=== PATIENT | female | born 1940 | race Caucasian/White ===

== ENCOUNTER 2021-10-24 19:07 | Observation (INO) ==
[2021-10-24] MEDS ORDERED: Morphine 2 MG/ML SYRINGE IV ONE (23:03)
[2021-10-24] MEDS ORDERED: oxyCODONE/Acetamin 5/325 mg TAB PO PRN (23:46)
[2021-10-25 00:28] LABS: ABS Lymphocytes 1.1 10^3/ul (1.0-4.8); ABS Monocytes 0.7 10^3/ul (0-0.8); ABS Neutrophils 8.7 10^3/ul (1.5-7.7); Eosinophil % 0.1 %; Hematocrit 40 % (35-47); Hemoglobin 13.8 g/dL (12.0-16.0); Lymphocyte % 10.2 %; Mean Corpuscular HGB Conc 35 g/dL (31-36); Mean Corpuscular Hemoglobin 31 pg (27-31); Mean Corpuscular Volume 90 fL (80-97); Mean Platelet Volume 8.5 fL (7.4-10.4); Platelet Count 153 10^3/uL (150-450); Red Blood Count 4.46 10^6 /uL (3.70-4.87); Red Cell Distribution Width 12 % (10-15); White Blood Count 10.5 10^3/uL (3.5-10.8)
[2021-10-25 00:34] LABS: INR 1.16 (0.86-1.15)
[2021-10-25] MEDS ORDERED: Ondansetron 4 mg VIAL 2 MG/ML 2 ml VIAL IV PRN (00:39)
[2021-10-25 00:45] LABS: Albumin 4.4 g/dL (3.2-5.2); Albumin/Globulin Ratio 2.1 (1-3); Calcium 9.6 mg/dL (8.6-10.3); Globulin 2.1 g/dL (2-4); Potassium 3.7 mmol/L (3.5-5.0); Total Bilirubin 0.8 mg/dL (0.2-1.0); Total Protein 6.5 g/dL (6.4-8.9); eGFR CKD-EPI 87.4 (>60)
[2021-10-25] MEDS ORDERED: diPHENhydraMINE 25 mg TAB PO PRN (00:52)
[2021-10-25] MEDS ORDERED: Calcium/Vitamin D TAB 250/125 TAB PO SCH (09:00)
[2021-10-25] MEDS ORDERED: Enoxaparin 40 MG/0.4 ML SYR SUBCUT SCH (09:00)
[2021-10-25] MEDS: PTO: Multivitamins/Mins AREDS2 (NF) CAP PO SCH ×2 (09:20→15:04)
[2021-10-25 11:47] VITALS: BP 95/61
[2021-10-25] MEDS ORDERED: Cholecalciferol (VIT D3) 400 units TAB PO SCH (21:00)
== END 2021-10-25 16:40 | disposition home or self-care (01) ==
LOC: ED 19:07 → EDHOLD 19:07 → SSU 10-25 03:00
PROVIDERS: ADMIT Nurse Practitioner Family; ATTEND Internal Medicine

== ENCOUNTER 2023-03-19 23:37 | Inpatient (IN) ==
[2023-03-19] MEDS ORDERED: fentaNYL 100 mcg/2 ml 50 MCG/ML VIAL IV SLOW PU PRN (23:49)
[2023-03-19] MEDS ORDERED: ceFAZolin 1 GM ADVAN 1 GM in NS 0.9% 50 ML 50 ML IVPB ONE (23:49)
[2023-03-19] MEDS ORDERED: Lactated Ringers 1000 ml BAG 1,000 ML IV ONE (23:50)
[2023-03-20 00:15] LABS: ABS Basophils 0.1 10^3/uL (0.0-0.1); ABS Eosinophils 0.2 10^3/uL (0.0-0.5); ABS Monocytes 0.6 10^3/uL (0.0-0.9); ABS Neutrophils 4.6 10^3/uL (1.5-7.6); ABS Nucleated RBC 0.01 10^3/ul; Eosinophil % 2.1 %; Hematocrit 38.4 % (35-45); Hemoglobin 13.1 g/dL (11.5-14.3); Lymphocyte % 26.9 %; Mean Corpuscular Hemoglobin 30.2 pg (27-33); Mean Corpuscular Hgb Conc 34.2 g/dL (31-36); Mean Corpuscular Volume 88.2 fL (80-97); Mean Platelet Volume 8.3 fL (7.5-11.2); Nucleated Red Blood Cells % 0.1 /100 WBC (0.0-0.4); Platelet Count 162 10^3/uL (150-450); Red Blood Count 4.35 10^6/uL (3.63-4.92); Red Cell Distribution Width 13.1 % (12-17); White Blood Count 7.4 10^3/uL (3.8-11.8)
[2023-03-20 00:27] LABS: INR 1.11 (0.88-1.18)
[2023-03-20 00:32] LABS: Albumin 4.2 g/dL (3.2-5.2); Albumin/Globulin Ratio 1.8 (1-3); Calcium 9.3 mg/dL (8.6-10.3); Creatinine, Serum 0.76 mg/dL (0.51-0.95); Globulin 2.4 g/dL (2-4); Potassium 3.4 mmol/L (3.5-5.0); Total Bilirubin 0.4 mg/dL (0.2-1.0); Total Protein 6.6 g/dL (6.4-8.9); eGFR CKD-EPI 78.2 (>60)
[2023-03-20] MEDS ORDERED: fentaNYL 100 mcg/2 ml 50 MCG/ML VIAL ONE ×2 (00:35→01:28)
[2023-03-20] MEDS ORDERED: Tetan/Diph/Pertus SYR(Tdap) 0.5 ML SYR(BOOSTRIX) use SYR contains LATEX IM ONE (00:44)
[2023-03-20] MEDS ORDERED: Midazolam 2 mg/2 ml VIAL 1 mg/ml 2 ml VIAL (2 mg) ONE (01:28)
[2023-03-20] MEDS ORDERED: Bupivacaine 0.25% SDV PF 10 ML VIAL INJ ONE (01:28)
[2023-03-20] MEDS ORDERED: Dexmedetomidine 200 mcg/2 ml 2 ml VIAL (200 mcg) ONE (01:28)
[2023-03-20] MEDS ORDERED: Bupivacaine 0.5% SDV PF 30ML VIAL ONE (01:28)
[2023-03-20] MEDS ORDERED: Dexamethasone IV 4 MG/ML VIAL 1 ml VIAL ONE (01:29)
[2023-03-20] MEDS ORDERED: Metoclopramide 5 MG/ML VIAL (10 mg) ONE (01:29)
[2023-03-20] MEDS ORDERED: Propofol 10 MG/ML 20 ML BTL ONE (01:29)
[2023-03-20] MEDS ORDERED: Succinylcholine 200 mg VIAL 20 mg/ml 10 ml VIAL (200 mg) ONE (01:35)
[2023-03-20] MEDS ORDERED: Rocuronium 50 mg VIAL 10 mg/ml 5 ml VIAL (50 mg) ONE (01:35)
[2023-03-20] MEDS ORDERED: Bupivacaine 0.5% 50 ML MDV VIAL ONE (01:43)
[2023-03-20] MEDS ORDERED: fentaNYL 100 mcg/2 ml 50 MCG/ML VIAL IV PRN (01:43)
[2023-03-20] MEDS ORDERED: Ondansetron 4 mg VIAL 2 MG/ML 2 ml VIAL IV PRN ×2 (01:43→04:52)
[2023-03-20] MEDS ORDERED: Naloxone 0.4 mg VIAL 0.4 mg/ml 1 ml VIAL IV PRN (01:43)
[2023-03-20] MEDS ORDERED: HYDROmorphone 1 MG/1 ML SYRINGE IV PRN ×2 (01:43→23:31)
[2023-03-20] MEDS ORDERED: Lactulose 30 ml UDC PO PRN (04:52)
[2023-03-20] MEDS ORDERED: Ondansetron ODT 4 mg TAB 4 MG TAB PO PRN (04:52)
[2023-03-20] MEDS ORDERED: Morphine 2 MG/ML SYRINGE IV PRN (04:52)
[2023-03-20] MEDS ORDERED: Magnesium Hydroxide LIQ 30 ML UDC PO PRN (04:52)
[2023-03-20] MEDS: Magnesium Hydroxide LIQ 30 ML UDC PO SCH ×2 (08:31→20:26)
[2023-03-20] MEDS: Vitamin THERAPEUTIC TAB PO SCH (08:31)
[2023-03-20] MEDS: ceFAZolin 1 GM ADVAN 1 GM in NS 0.9% 50 ML 50 ML IVPB SCH ×2 (08:31→16:02)
[2023-03-20] MEDS: [UNRECOGNIZED DRUG - OTHER] PO SCH (20:34)
[2023-03-20] MEDS: MINERA AREDS PO SCH (20:34)
[2023-03-21] MEDS: ceFAZolin 1 GM ADVAN 1 GM in NS 0.9% 50 ML 50 ML IVPB SCH (01:16)
[2023-03-21 06:20] LABS: Hematocrit 35.2 % (35-45); Hemoglobin 12.2 g/dL (11.5-14.3)
[2023-03-21 06:30] LABS: Calcium 8.4 mg/dL (8.6-10.3); Creatinine, Serum 0.65 mg/dL (0.51-0.95); Potassium 3.4 mmol/L (3.5-5.0); eGFR CKD-EPI 87.9 (>60)
[2023-03-21] MEDS ORDERED: Potassium Chlor 20 meq TAB.ER PO ONE (08:18)
[2023-03-21] MEDS: Vitamin THERAPEUTIC TAB PO SCH (08:59)
[2023-03-21] MEDS: [UNRECOGNIZED DRUG - OTHER] PO SCH (09:02)
[2023-03-21] MEDS: MINERA AREDS PO SCH (09:02)
[2023-03-21] MEDS: Magnesium Hydroxide LIQ 30 ML UDC PO SCH (09:07)
[2023-03-21 10:18] VITALS: BP 105/69
== END 2023-03-21 14:10 | disposition home or self-care (01) | DRG 315 ==
LOC: ED 23:37 → EDHOLD 23:37 → SDS 03-20 01:37 → SSU 03-20 01:37 → SDS 03-20 01:40 → OBSVTOIN 03-20 05:29
PROVIDERS: ADMIT Orthopaedic Surgery; ATTEND Orthopaedic Surgery

== ENCOUNTER 2024-07-16 07:06 | Observation (INO) ==
[~2024-07-16 07:06] MED LIST: Naloxone 0.4 mg VIAL 0.4 mg/ml 1 ml VIAL IV PRN
[2024-07-16] MEDS ORDERED: ceFAZolin 2 GM PREMIX 2 GM/50 ML BAG ONE (08:48)
[2024-07-16] MEDS ORDERED: Tranexamic Acid 1 GM/100ML BAG 2,000 MG/200 ML BAG IV ONE (08:48)
[2024-07-16 08:49] LABS: Rapid COVID-19 Molecular Undetected (Undetected)
[2024-07-16] MEDS ORDERED: Lidocaine 2% PF 5 ML VIAL ONE (08:54)
[2024-07-16] MEDS ORDERED: Propofol 10 MG/ML 20 ML BTL ONE ×3 (08:54→13:01)
[2024-07-16] MEDS ORDERED: Glycopyrrolate IV 0.2 MG/ML 1 ML VIAL ONE (08:54)
[2024-07-16] MEDS ORDERED: Ondansetron 4 mg VIAL 2 MG/ML 2 ml VIAL ONE (08:54)
[2024-07-16] MEDS ORDERED: Dexamethasone IV 4 MG/ML VIAL 1 ml VIAL ONE (08:54)
[2024-07-16] MEDS ORDERED: fentaNYL 100 mcg/2 ml 50 MCG/ML VIAL ONE (08:56)
[2024-07-16 09:09] LABS: INR 1.04 (0.85-1.14)
[2024-07-16] MEDS ORDERED: Midazolam 2 mg/2 ml VIAL 1 mg/ml 2 ml VIAL (2 mg) ONE (09:48)
[2024-07-16] MEDS ORDERED: Lidocaine 1% w EPI 1:200,000 SDV 30 ML VIAL ONE (09:49)
[2024-07-16] MEDS ORDERED: Vancomycin 1,000 MG VIAL ONE (09:49)
[2024-07-16] MEDS ORDERED: ROPIVACAINE 5 MG/ML 30 ML BTL (0.5%) ONE (10:00)
[2024-07-16] MEDS ORDERED: Phenylephrine 40 mcg/mL 10mL (400mcg) SYRINGE ONE (11:26)
[2024-07-16] MEDS ORDERED: HYDROmorphone 0.5 MG/0.5 ML SYRINGE IV SLOW PU PRN (12:41)
[2024-07-16] MEDS ORDERED: Dexmedetomidine 200 mcg/2 ml 2 ml VIAL (200 mcg) ONE (13:01)
[2024-07-16] MEDS ORDERED: Ondansetron 4 mg VIAL 2 MG/ML 2 ml VIAL IV PRN (14:27)
[2024-07-16] MEDS ORDERED: Magnesium Hydroxide LIQ 30 ML UDC PO PRN (14:27)
[2024-07-16] MEDS ORDERED: Lactulose 30 ml UDC PO PRN (14:27)
[2024-07-16] MEDS ORDERED: Calcium Carb (TUMS) 500 mg CHEW TAB PO PRN (14:27)
[2024-07-16] MEDS ORDERED: Morphine 2 MG/ML SYRINGE IV PRN (14:27)
[2024-07-16] MEDS ORDERED: Ondansetron ODT 4 mg TAB 4 MG TAB PO PRN (14:27)
[2024-07-16] MEDS: Buffered Lidocaine 1% SYRIN 1 ml INTRADERM ONE (14:34)
[2024-07-16] MEDS: Lactated Ringers 1000 ml BAG 1,000 ML IV SCH ×2 (14:34→15:25)
[2024-07-16] MEDS: ceFAZolin 2 GM PREMIX 2 GM/50 ML BAG IV SCH (18:38)
[2024-07-17] MEDS: Magnesium Hydroxide LIQ 30 ML UDC PO SCH (00:10)
[2024-07-17 06:38] LABS: Hematocrit 34.8 % (35-45); Hemoglobin 11.8 g/dL (11.5-14.3); Mean Platelet Volume 8.4 fL (7.5-11.2); Platelet Count 145 10^3/uL (150-450)
[2024-07-17 07:11] LABS: Calcium 8.7 mg/dL (8.6-10.3); Creatinine, Serum 0.72 mg/dL (0.51-0.95); Potassium 4.2 mmol/L (3.5-5.0); eGFR CKD-EPI 82.9 (>60)
[2024-07-17] MEDS: Vitamin THERAPEUTIC TAB PO SCH (09:04)
[2024-07-17 10:27] VITALS: BP 91/59
== END 2024-07-17 14:35 ==
LOC: SSU 07:06 → OR 07:06
PROVIDERS: ADMIT Orthopaedic Surgery; ATTEND Orthopaedic Surgery